=== PATIENT | male | born 1965 | race Caucasian/White ===

== ENCOUNTER → 2018-08-21 | Outpatient (REF) | payer MEDICARE, MEDICAID ==
[2018-08-21 13:45] LABS: RHEUMATOID FACTOR QUANT < 10.0 IU/ML (<15.0); TOTAL PROTEIN 7.6 GM/DL (6.4-8.2)
[2018-08-21 13:55] LABS: FOLATE 15.6 NG/ML; VITAMIN B12 LEVEL 573 PG/ML
[2018-08-23 12:08] LABS: ALBUMIN 4.76 GM/DL (3.29-5.55); ALBUMIN % 62.6 % (55.8-66.1); ALPHA-1-GLOBULIN % 3.8 % (2.9-4.9); ALPHA-1-GLOBULINS 0.29 GM/DL (0.17-0.41); ALPHA-2-GLOBULINS % 9.2 % (7.1-11.8); BETA-1-GLOBULINS 0.45 GM/DL (0.28-0.60); BETA-1-GLOBULINS % 5.9 % (4.7-7.2); BETA-2-GLOBULINS 0.32 GM/DL (0.19-0.55); BETA-2-GLOBULINS % 4.2 % (3.2-6.5); GAMMA GLOBULIN % 14.3 % (11.1-18.8); GAMMA GLOBULINS 1.09 GM/DL (0.65-1.58)
[2018-08-25 14:13] LABS: ANTINUCLEAR ANTIBODIES DIRECT Negative (Negative); CERULOPLASMIN 22.4 mg/dL (16.0-31.0); COPPER PLASMA 86 ug/dL (72-166); VITAMIN B1 LEVEL WHOLE BLOOD 136.7 nmol/L (66.5-200.0); VITAMIN B6,PYRIDOXAL PHOSPHATE 3.1 ug/L (5.3-46.7); VITAMIN E(GAMMA TOCOPHEROL) 0.6 mg/L (0.5-5.5)
== END ==
LOC: M LABNEURO 10:28
PROVIDERS: ATTEND Psychiatry & Neurology Neurology
DX: G60.9 Hereditary and idiopathic neuropathy, unspecified (principal); R25.1 Tremor, unspecified; E53.9 Vitamin B deficiency, unspecified